=== PATIENT | female | born 1975 | race Caucasian/White ===

== ENCOUNTER 2018-07-11 01:14 | Observation (INO) ==
[2018-07-11] MEDS ORDERED: Isovue-370 500 ML INFUS..BTL IV ONE ×2 (01:20→02:08)
--- NOTE | 2018-07-11 01:24 | Emergency Department Note ---
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 AT 12:30 this morning, patient went to the restroom. While there, she had abrupt onset right sided numbness. She attempted to stand and was unable to due to weakness of her right leg. She fell; no head trauma. No LOC. She arrives by [facility]. 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 No EtOH, smoking, illicit substance use. No history of cardiac problems. No history of hypertension, hyperlipidemia, diabetes. ROS: POS: as above Neg: fever, chills, nausea, vomiting, chest pain, palpitations, dyspnea, headache, visual changes, confusion. - Related Data Home Medications: Home Medications Medication Instructions Recorded Confirmed No Known Home Drugs 07/11/18 07/11/18 Allergies/Adverse Reactions: Allergies Allergy/AdvReac Type Severity Reaction Status Date / Time No Known Allergies Allergy Verified 07/11/18 01:31 All systems ED: reviewed and negative except as stated. Review of Systems: As Per HPI Physical Exam Vital Signs Reviewed General: Patient is alert, oriented, and in no acute distress. Head: atraumatic, normocephalic Eye: normal appearance, PERRL, EOMI, no scleral icterus, no conjunctival injection ENT: mucous membranes moist, normal external ear exam Neck: normal inspection, trachea midline, full ROM Chest: normal inspection, symmetric chest rise Respiratory: Good respiratory effort. Bilateral breath sounds are clear without wheezing, crackles, or rhonchi. Cardiovascular: Regular rate and rhythm. No clicks, rubs, gallops, or murmors. Normal heart sounds. Abdomen: Bowel sounds present normoactive x-4 quadrants. Abdomen is soft, nondistended, and nontender. No guarding or rebound. No organomegaly noted. Musculoskeletal: Spontaneously moving all extremities. Skin: warm, dry, intact. Neuro: Alert and oriented x4. GCS 15. Mild drooping to the right side of her face. Mild Cerner speech. She is answering all questions properly. No visual field deficits. Right lower extremity to be lifted off the bed but slowly drifts back down, not hitting the bed. Similar for right upper extremity. Sensation is not a sharp on the right side. Psych: Patient's affect is appropriate for situation. Course Course Narrative: On intake: NIHSS 4. right upper lower extremity weakness, decreased sensation on the right side. Right fissure. Slurring of speech. Stroke alert called. On return from CT scan, there was improvement in her speech, facial droop, and strength though none were back to baseline. [facility] neurology evaluated the patient. Recommends aspirin, no tPa, and admission for TIA workup. [place] radiology re: CTA head neck. Abnormality in proximal right ICA suspected to be streak artifact on right ICA. Suspicious for hair tie or something on the bed. At worst, small dissection. Recommends follow-up MRI neck which does not need to be done emergently. Rather, this can be done first thing in the morning included with her MRI head as part of the TIA workup. Discussed the above with the admitting hospitalist. He agrees to admission for TIA workup. Patient is asymptomatic in the emergency department prior to transport up to the floor. She is ambulated without difficulty and without assistance. Aspirin given. Vital Signs Temperature 98 F 07/11/18 01:16 Pulse Rate 86 07/11/18 01:16 Respiratory Rate 15 07/11/18 01:16 Blood Pressure 142/89 07/11/18 01:16 O2 Sat by Pulse Oximetry 99 07/11/18 01:16 Temperature 97.9 F 07/11/18 04:35 Pulse Rate 72 07/11/18 04:35 Respiratory Rate 15 07/11/18 04:35 Blood Pressure 129/79 07/11/18 04:35 O2 Sat by Pulse Oximetry 97 07/11/18 04:45 Oxygen Delivery Oxygen Delivery Room Air Neuro Symptoms/Deficit - Lab Data Result diagrams: 07/11/18 01:27 07/11/18 01:27 Lab Results 07/11/18 07/11/18 07/11/18 Range/Units 01:19 01:27 01:27 WBC 7.6 (4.3-11.1) K/mcL RBC 4.58 (3.82-4.97) M/mcL Hgb 13.4 (11.5-15.4) g/dL Hct 41.8 (35.3-44.9) % MCV 91.3 (83.0-100.0) fL MCH 29.3 (28.0-33.3) pg MCHC 32.1 (31.6-35.5) g/dL RDW 13.1 (11.5-14.5) % Plt Count 291 (140-400) K/mcL MPV 9.3 L (9.4-12.4) fL PT 12.2 H (9.4-12.1) Seconds INR 1.1 APTT 27.8 (26.0-36.0) Seconds Sodium (136-145) mEq/L Potassium (3.5-5.1) mEq/L Chloride (98-107) mEq/L Carbon Dioxide (23-29) mEq/L BUN (6-20) mg/dL Creatinine (0.60-1.20) mg/dL Est GFR ( Amer) (> 60) Est GFR (Non-Af Amer) (> 60) BUN/Creatinine Ratio (6-26) Glucose (70-105) mg/dL POC Glucose 110 H (70-99) mg/dL Calculated Osmolality (280-300) Calcium (8.6-10.3) mg/dL Troponin I (< 0.04) ng/mL Urine Test (Negative) 07/11/18 07/11/18 Range/Units 01:27 02:54 WBC (4.3-11.1) K/mcL RBC (3.82-4.97) M/mcL Hgb (11.5-15.4) g/dL Hct (35.3-44.9) % MCV (83.0-100.0) fL MCH (28.0-33.3) pg MCHC (31.6-35.5) g/dL RDW (11.5-14.5) % Plt Count (140-400) K/mcL MPV (9.4-12.4) fL PT (9.4-12.1) Seconds INR APTT (26.0-36.0) Seconds Sodium 138 (136-145) mEq/L Potassium 3.7 (3.5-5.1) mEq/L Chloride 104 (98-107) mEq/L Carbon Dioxide 24 (23-29) mEq/L BUN 19 (6-20) mg/dL Creatinine 0.82 (0.60-1.20) mg/dL Est GFR ( Amer) > 60 (> 60) Est GFR (Non-Af Amer) > 60 (> 60) BUN/Creatinine Ratio 23 (6-26) Glucose 127 H (70-105) mg/dL POC Glucose (70-99) mg/dL Calculated Osmolality 290 (280-300) Calcium 9.5 (8.6-10.3) mg/dL Troponin I < 0.03 (< 0.04) ng/mL Urine Test Negative (Negative) NIH Stroke Scale - Level of Consciousness LOC: Alert - LOC Questions LOC Questions: Answers both correctly - LOC Commands LOC Commands: Performs both correctly - Best Gaze Best Gaze: Normal - Visual Visual: No visual loss - Facial Palsy Facial Palsy: Minor asymmetry on smiling, flattened nasolabial fold - Motor Arms Motor Arm-Left: No drift for 10 seconds Motor Arm-Right: No drift for 10 seconds - Motor Legs Motor Leg-Left: No drift for 5 seconds Motor Leg-Right: Drift, does NOT hit bed - Limb Ataxia Limb Ataxia: Normal, No Ataxia - Sensory Sensory: Mild to moderate loss, "not as sharp" - Best Language Best Language: No aphasia - Dysarthria Dysarthria: Mild, slurs some words - Extinction and Inattention Extinction and Inattention: Normal - NIHSS Total Score NIHSS Total Score: 4 TPA Checklist - LKW: 3-4.5 hrs Add. Warnings/Precautions Patient/family understanding: The patient/family members have been counseled and understood the risk, benefit, and alternatives of treatment.
[2018-07-11 01:33] LABS: Hematocrit 41.8 % (35.3-44.9); Hemoglobin 13.4 g/dL (11.5-15.4); Mean Corpuscular HGB Conc 32.1 g/dL (31.6-35.5); Mean Corpuscular Hemoglobin 29.3 pg (28.0-33.3); Mean Corpuscular Volume 91.3 fL (83.0-100.0); Mean Platelet Volume 9.3 fL (9.4-12.4); Platelet Count 291 K/mcL (140-400); Red Blood Count 4.58 M/mcL (3.82-4.97); Red Cell Distribution Width 13.1 % (11.5-14.5)
[2018-07-11 01:41] LABS: INR 1.1; Prothrombin Time 12.2 Seconds (9.4-12.1)
[2018-07-11 01:43] LABS: Activated Partial Thrombo Time 27.8 Seconds (26.0-36.0)
[2018-07-11 02:00] LABS: BUN/Creatinine Ratio 23 (6-26); Blood Urea Nitrogen 19 mg/dL (6-20); Calcium 9.5 mg/dL (8.6-10.3); Carbon Dioxide 24 mEq/L (23-29); Chloride 104 mEq/L (98-107); Glucose 127 mg/dL (70-105); Osmolality,Calculated 290 (280-300); Potassium 3.7 mEq/L (3.5-5.1); Sodium 138 mEq/L (136-145); eGFR For Non-African Americans > 60 (> 60)
[2018-07-11 02:01] LABS: Troponin I < 0.03 ng/mL (< 0.04)
[2018-07-11] MEDS ORDERED: Aspirin 325 MG TABLET PO ONE (02:02)
--- NOTE | 2018-07-11 03:41 | Emergency Department Note ---
Disposition Clinical Impression: TIA (transient ischemic attack) Disposition: Admitted As Inpatient Condition: Good General Adult HPI - General Chief complaint: ED Neuro Symptoms/Deficit Stated complaint: right side numbness Time Seen by Provider: 07/11/18 01:20 Source: patient, EMS Limitations: no limitations Nursing Notes Reviewed: Yes Vital Signs Reviewed: Yes - History of Present Illness Pain Scale: 0 - Related Data Home Medications Medication Instructions Recorded Confirmed No Known Home Drugs 07/11/18 07/11/18 Allergies Allergy/AdvReac Type Severity Reaction Status Date / Time No Known Allergies Allergy Verified 07/11/18 01:31 Past Medical History - Past Medical History Medical history: Reports: no medical history Psychiatric history: Reports: no psych history - Social History Smoking Status: Never smoker Alcohol use: Reports: none Drug use: Reports: none Physical Exam - General Limitations: no limitations General appearance: alert Course Vital Signs Temperature 98 F 07/11/18 01:16 Pulse Rate 86 07/11/18 01:16 Respiratory Rate 15 07/11/18 01:16 Blood Pressure 142/89 07/11/18 01:16 O2 Sat by Pulse Oximetry 99 07/11/18 01:16 Temperature 97.9 F 07/11/18 04:35 Pulse Rate 72 07/11/18 04:35 Respiratory Rate 15 07/11/18 04:35 Blood Pressure 129/79 07/11/18 04:35 O2 Sat by Pulse Oximetry 97 07/11/18 04:45 Oxygen Delivery Oxygen Delivery Room Air Medical Decision Making - Lab Data Lab results reviewed: Yes I reviewed the patient's lab results. Result diagrams: 07/11/18 01:27 07/11/18 01:27 Lab Results 07/11/18 07/11/18 07/11/18 Range/Units 01:19 01:27 01:27 WBC 7.6 (4.3-11.1) K/mcL RBC 4.58 (3.82-4.97) M/mcL Hgb 13.4 (11.5-15.4) g/dL Hct 41.8 (35.3-44.9) % MCV 91.3 (83.0-100.0) fL MCH 29.3 (28.0-33.3) pg MCHC 32.1 (31.6-35.5) g/dL RDW 13.1 (11.5-14.5) % Plt Count 291 (140-400) K/mcL MPV 9.3 L (9.4-12.4) fL PT 12.2 H (9.4-12.1) Seconds INR 1.1 APTT 27.8 (26.0-36.0) Seconds Sodium (136-145) mEq/L Potassium (3.5-5.1) mEq/L Chloride (98-107) mEq/L Carbon Dioxide (23-29) mEq/L BUN (6-20) mg/dL Creatinine (0.60-1.20) mg/dL Est GFR ( Amer) (> 60) Est GFR (Non-Af Amer) (> 60) BUN/Creatinine Ratio (6-26) Glucose (70-105) mg/dL POC Glucose 110 H (70-99) mg/dL Calculated Osmolality (280-300) Calcium (8.6-10.3) mg/dL Troponin I (< 0.04) ng/mL Urine Test (Negative) 07/11/18 07/11/18 Range/Units 01:27 02:54 WBC (4.3-11.1) K/mcL RBC (3.82-4.97) M/mcL Hgb (11.5-15.4) g/dL Hct (35.3-44.9) % MCV (83.0-100.0) fL MCH (28.0-33.3) pg MCHC (31.6-35.5) g/dL RDW (11.5-14.5) % Plt Count (140-400) K/mcL MPV (9.4-12.4) fL PT (9.4-12.1) Seconds INR APTT (26.0-36.0) Seconds Sodium 138 (136-145) mEq/L Potassium 3.7 (3.5-5.1) mEq/L Chloride 104 (98-107) mEq/L Carbon Dioxide 24 (23-29) mEq/L BUN 19 (6-20) mg/dL Creatinine 0.82 (0.60-1.20) mg/dL Est GFR ( Amer) > 60 (> 60) Est GFR (Non-Af Amer) > 60 (> 60) BUN/Creatinine Ratio 23 (6-26) Glucose 127 H (70-105) mg/dL POC Glucose (70-99) mg/dL Calculated Osmolality 290 (280-300) Calcium 9.5 (8.6-10.3) mg/dL Troponin I < 0.03 (< 0.04) ng/mL Urine Test Negative (Negative) - Radiology Data Radiology results reviewed: Yes I reviewed the patient's radiology results. Head CT 07/11/18 01:20 IMPRESSION: No acute intracranial abnormality. Left frontal prominent extra-axial space possibly prominent sulcus versus 1 cm arachnoid cyst. If further characterization is desired, MRI without IV contrast can be obtained for clarification. Borderline low-lying cerebellar tonsils. Findings were discussed with Dr. Garcia at 1: 40 am on 07/11/2018. D/ / Murali Mejia / Murali Mejia Interpreting Provider: Murali Mejia Head CTA 07/11/18 02:08 IMPRESSION: Right internal carotid artery intimal irregularity suggestive of a tiny dissection flap without occlusion. Please note there is streak artifact in this location due to hyperdensity located along the posterior left margin of the patient raising the possibility of artifactual finding. No acute intracranial arterial abnormality follow-up CT angiogram or MRA neck for confirmation is suggested. Critical results were called by Dr. Murali Mejia to Nikko Marie on 07/11/2018 at 02:59. D/ / Murali Mejia / Murali Mejia Interpreting Provider: Murali Mejia Neck CTA 07/11/18 02:08 IMPRESSION: Right internal carotid artery intimal irregularity suggestive of a tiny dissection flap without occlusion. Please note there is streak artifact in this location due to hyperdensity located along the posterior left margin of the patient raising the possibility of artifactual finding. No acute intracranial arterial abnormality follow-up CT angiogram or MRA neck for confirmation is suggested. Critical results were called by Dr. Murali Mejia to Nikko Marie on 07/11/2018 at 02:59. D/ / Murali Mejia / Murali Mejia Interpreting Provider: Murali Mejia - EKG Data EKG #1 EKG attestation: Yes I reviewed and interpreted this EKG. EKG results narrative: EKG shows a normal sinus rhythm with ventricular rate of 82. No acute ST segment elevation or depression. No arrhythmia or ectopy. Critical Care Time Critical Care Time: Yes Total Critical Care Time: 45 Attestation: Critical care performed: Time is exclusive of separately billable procedures. Time includes: direct patient care, patient reassessment, coordination of patient care, interpretation of data (laboratory data, radiology data, and respiratory data), review of patient's medical records, medical consultation and documentation of patient ca re. Procedures included in critical care time: Procedures excluded from critical care time: Attestation Statement - Attestation Attestation: I, Ashwin Garcia MD, personally evaluated this patient and discussed their management with the resident physician. I reviewed the resident's note and agree with the documented findings, medical decision making, and plan of care. 42-year-old female presents to the emergency department by ambulance with a complaint of acute onset of stroke symptoms. 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 She also was unable to speak. She has no prior medical history. No history of hypertension or diabetes. No headache. No blurred vision or double vision. By the time the patient arrived here in our emergency department her symptoms were improving and she is able to speak but has difficulty with words and her speech is slurred. She is able to move her right side but still has right-sided weakness and a mild right facial droop. A stroke alert was called. Patient had an emergent head CT which was negative per radiologist. Her symptoms continued to rapidly improve and by the time the stroke neurologist from [facility] examine the patient via the stroke robot her sympto ms had essentially totally resolved and her stroke scale was 0. Neurology recommended aspirin and admission for TIA workup. On examination patient is a well-developed well-nourished well-appearing female in no acute distress. She is alert and oriented 3. There is no cyanosis or diaphoresis. Sounds are clear and equal bilaterally. Heart regular rate and rhythm. Abdomen soft and nontender with normal bowel sounds. Patient does have mild right facial droop and some slurred speech. Some difficulty getting her words out but is able to talk and answer questions appropriately. She has weak ness of the right upper and lower extremity but is able to hold them off the stretcher with some drift. Labs reviewed. Head CT negative. The hospitalist, Dr. Auguste, was consulted and accepted admission of the patient.
[2018-07-11] MEDS ORDERED: Naloxone 0.4 MG/ML INJ IVP PRN (04:55)
[2018-07-11] MEDS ORDERED: Acetaminophen 325 MG TABLET PO PRN (04:55)
--- NOTE | 2018-07-11 05:36 | Internal Med History&Physical ---
Date of Encounter: 07/11/18 Time of Encounter: 05:27 Internal Medicine - H&P: HPI Chief complaint: Right sided numbness/weakness History of present illness: Ms. Sabillon is a 42 year old female with no significant past medical history who presents to the ED due to right sided numbness and weakness. Patient was in her usual state of health today. 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 She states that around 12:30 while at work she was using the bathroom when she noted tingling sensation in her right hand. She states that when she went to reach the toilet paper she was unable to move her right arm. Symptoms rapidly progressed to involve the right side of her face and leg and to include numbness as well. She noted she was unable to speak clearly and was mumbling. Patient started to droop over to her side and decided to slowly ease herself on to the floor. She was then able to text one of her colleagues to come and help her. Stroke alert was called and patient was subsequently transferred to [place]. Emergency CT was negative. Per ED reports, patient's symptoms rapidly improved by the time the stroke neurologist from [facility] examined the patient remotely. Her NIH stroke scale was 0 at the time. Patient reports that she does not smoke or drink. She does state that she has a family history of multiple sclerosis in her mother. Review of systems otherwise negative. Laboratory workup was otherwise unremarkable. Past Med Surg Social Fam HX - Past Medical History Medical history: no medical history Psychiatric history: no psych history - Past Surgical History Surgical History: Additional surgical history: Korey Bermudez 05/03. Lipoma removal 2012 - Social History Smoking Status: Never smoker Alcohol use: none Drug use: none Internal Medicine - H&P: Meds No Known Home Drugs 07/11/18 [History] Allergy/AdvReac Type Severity Reaction Status Date / Time No Known Allergies Allergy Verified 07/11/18 01:31 All Systems PM: A 10-system review of systems was performed and is negative for pertinent findings except as documented above in the HPI. - Constitutional Constitutional: no chills, no fever(s), no night sweats - EENT Eyes: no change in vision, no discharge, no pain, no photophobia Ears: no ear discharge, no ear pain, no tinnitus Nose, mouth and throat: no dysphagia, no nasal discharge, no neck pain, no sore throat - Cardiovascular Cardiovascular ROS IM: no chest pain, no diaphoresis, no dyspnea, no lighthe adedness, no palpitations, no syncope - Respiratory Respiratory: no cough, no dyspnea, no wheezing, no excessive phlegm production - Gastrointestinal Gastrointestinal: no abdominal pain, no diarrhea, no hematemesis, no hem atochezia, no melena, no nausea, no vomiting - Genitourinary Genitourinary: no change in urinary stream, no dysuria, no flank pain, no hematuria - Musculoskeletal Musculoskeletal ROS IM: no numbness, no tingling - Integumentary Integumentary IM: no rash, no unusual bruising - Neurological Neurological ROS: no confusion, no convulsions, no focal weakness, no numbness, no tingling, no tremor(s) - Hematologic/Lymphatic Hematologic/Lymphatic: no easy bruising - Constitutional Vitals: Temp Pulse Resp BP Pulse Ox 98.0 F 90 17 134/88 97 07/11/18 01:16 07/11/18 02:58 07/11/18 02:58 07/11/18 02:58 07/11/18 04:45 Exam: General: Alert and oriented 3; lying in bed pleasant, in no acute distress Skin:Normal color, no rash, no lesions. HEENT:EOM, pupils equal, round and reactive. Cardiovascular:Normal S1 & S2, no rubs, murmurs or gallops. No JVD. Pulse regular. Lungs:Normal breath sounds, no wheezes or crackles. Abdomen:Soft, non-tender, no rigidity. Extremities:No deformity, no edema or tenderness, no joint swelling or clubbing. Neurological:Normal cognition, cranial nerves II through XII intact; sensation intact; muscle strength 5 out of 5 in the upper and lower extremities; no dysmetria appreciated; negative Babinski. Pulses:Carotid and radial pulses normal +2. Rest of the physical exam is non contributory Internal Med - H&P Results - Labs CBC & Chem 7: 07/11/18 01:27 07/11/18 09:42 Labs: Short CBC 07/11/18 Range/Units 01:27 WBC 7.6 (4.3-11.1) K/mcL Hgb 13.4 (11.5-15.4) g/dL Hct 41.8 (35.3-44.9) % Plt Count 291 (140-400) K/mcL BMP 07/11/18 01:27 Sodium 138 Potassium 3.7 Chloride 104 Carbon Dioxide 24 BUN 19 Creatinine 0.82 Glucose 127 H Calcium 9.5 Cardiac Enzymes 07/11/18 Range/Units 01:27 Troponin I < 0.03 (< 0.04) ng/mL - Impressions ITS Impressions Head CT 07/11/18 01:20 IMPRESSION: No acute intracranial abnormality. Left frontal prominent extra-axial space possibly prominent sulcus versus 1 cm arachnoid cyst. If further characterization is desired, MRI without IV contrast can be obtained for clarification. Borderline low-lying cerebellar tonsils. Findings were discussed with Dr. Garcia at 1: 40 am on 07/11/2018. D/ / Murali Mejia / Murali Mejia Interpreting Provider: Murali Mejia Head CTA 07/11/18 02:08 IMPRESSION: Right internal carotid artery intimal irregularity suggestive of a tiny dissection flap without occlusion. Please note there is streak artifact in this location due to hyperdensity located along the posterior left margin of the patient raising the possibility of artifactual finding. No acute intracranial arterial abnormality follow-up CT angiogram or MRA neck for confirmation is suggested. Critical results were called by Dr. Murali Mejia to Nikko Marie on 07/11/2018 at 02:59. D/ / Murali Mejia / Murali Mejia Interpreting Provider: Murali Mejia Neck CTA 07/11/18 02:08 IMPRESSION: Right internal carotid artery intimal irregularity suggestive of a tiny dissection flap without occlusion. Please note there is streak artifact in this location due to hyperdensity located along the posterior left margin of the patient raising the possibility of artifactual finding. No acute intracranial arterial abnormality follow-up CT angiogram or MRA neck for confirmation is suggested. Critical results were called by Dr. Murali Mejia to Nikko Marie on 07/11/2018 at 02:59. D/ / Murali Mejia / Murali Mejia Interpreting Provider: Murali Mejia - Assessment and plan (1) TIA (transient ischemic attack) Current Visit: Yes Status: Suspected Assessment and plan: Patient's clinical presentation with right-sided numbness and weakness which now appears to have resolved concerning for TIA. Patient does not seem to have any risk factors. Given patient's family history of multiple sclerosis cannot discount that is a possibility though her one-sided presentation would make it less likely. Radiology report of the CTA of the neck describes findings of a right internal carotid artery intimal irregularity suggestive of a tiny dissection flap without occlusion. I called the radiologist to discuss the findings who, as stated in his report, felt this to be an artifact likely from an object on the table or on the patient herself which is further supported by the fact that symptoms seem to be suggestive of a left sided supratentorial lesion. MRA and MRI was recommended to further clarify this artifactual suspicion; patient currently appears to be back to baseline neurologically. EKG was normal. Patient received loading dose of aspirin in the ED. Neuro checks every hour Telemetry We will obtain MRA and MRI of the head and neck Echocardiogram and bilateral carotid duplex Neurology consult (2) DVT prophylaxis Current Visit: Yes Status: Acute Assessment and plan: Subcutaneous heparin - Time Spent With Patient Total time spent is greater than 50% in coordination of care (as documented) at patient's floor/unit and/or counseling patient:
[2018-07-11] MEDS: *HR* Heparin 5,000 UNIT/ML VIAL SQ SCH ×3 (06:21→20:02)
--- NOTE | 2018-07-11 08:22 | Event Note ---
Date of Encounter: 07/11/18 Time of Encounter: 08:05 Seen and assessed. Agree with plan per night team Plan TIA with dysarthria nd right sided weakness r/o Acute CVA vs Multiple sclerosis. CTA head showed right internal carotid artery intimal irregularity suggestive of a tiny dissection flap without occlusion. Obtain MRI head and neck. Neurology consulted and recs appreciated
[2018-07-11] MEDS: Aspirin Enteric Coated 81 MG Tablet PO SCH (08:43)
--- NOTE | 2018-07-11 09:54 | Neurology - Consult Note ---
<Onesimo Cline - Last Filed: 07/11/18 10:03> Date of Encounter: 07/11/18 Time of Encounter: 09:49 Assessment and Plan (1) TIA (transient ischemic attack) Current Visit: Yes Status: Suspected Neurological exam nonfocal and nonlateralizing except for dysarthria Patient history of complete right-sided paralysis and paresis is quite co ncerning. CT head is negative. Had CTA is negative. Neck CTA shows possible right internal carotid artery dissection flap without occlusion unclear if this is artifact. Head and neck MRA pending. Patient also has a family history of MS. May also need a thoracic spine MRI. Patient does not have any risk factors for stroke: She is a nonsmoker, no history of hypertension. He will on A1c, lipid panel pending. Continue aspirin, statin. History of Present Illness Chief complaint: Right-sided weakness, numbness HPI: Ms. Sabillon is a 42 year old female presented from the [place] with chief complaint of right-sided paralysis, numbness. Patient was in the bathroom and was reaching out with her right hand to get toilet paper when she noticed that her right hand was not moving and she relies that she had complete loss of control of her right side and numbness and weakness of her right face as well. Patient helped herself to the ground and used her [employer] paging system to call for help. She found herself to be mumbling and not speaking clearly. Patient was transferred to [place] and had emergent CT which was negative. In the emergency department her NIH stroke scale was 0 and her symptoms had improved rapidly by the time of his neurologist examine the patient. She reports that her mother has multiple sclerosis. She denied any double vision, headache, blurry vision, difficulty swallowing. Patient reports her speech is not back to normal however her strength and her numbness has resolved. Past Med Surg Social Fam HX - Past Medical History Medical history: no medical history Psychiatric history: no psych history - Past Surgical History Surgical History: Additional surgical history: Korey Bermudez 05/03. Lipoma removal 2012 - Social History Smoking Status: Never smoker Alcohol use: none Drug use: none Medications and Allergies No Known Home Drugs 07/11/18 [History] Allergy/AdvReac Type Severity Reaction Status Date / Time No Known Allergies Allergy Verified 07/11/18 01:31 All Systems: The remainder of the systems were reviewed and are negative Review of Systems: Constitutional: Denies fever, chills HEENT: Denies headache, trauma, blurry vision, eye discharge, ear pain, ear discharge neck pain, sore throat, rhinorrhea Heart: Denies chest pain palpitations, LE edema Lungs: Denies shortness of breath cough Abdomen: Denies abdominal pain nausea vomiting diarrhea MSK: Denies back pain, falls, joint pain Kidney: Denies dysuria, hematuria Skin: Denies rash, ulcers Neuro: As per history of present illness Psych: denies axniety, depression Physical Examination - Vital Signs Vital Signs: Initial Vital Signs Temp Pulse Resp BP Pulse Ox 98 F 86 15 142/89 99 07/11/18 01:16 07/11/18 01:16 07/11/18 01:16 07/11/18 01:16 07/11/18 01:16 - Exam Exam: General: pleasant, without distress HEENT: Head atraumatic, normocephalic, EOMI, PERRL, absent ear discharge or trauma, Moist Mucous Membranes, uvula midline Neck: nontender to palpation, absent lymphadenopathy, Cardiovascualr: Regular rate and rhythm with no murmur, absent gallops or rubs, absent pedal edema, radial pulses 2 out of 4 Lungs: Clear to auscultation bilaterally, not in respiratory distress Abdomen: Soft nontender, nondistended positive bowel sounds, absent hepatomegaly Skin: warm and dry, absent rash, absent open wounds and nodules MSK: absent clubbing, cyanosis, joints without swelling Psych: good insight and judgment, - Constitutional General appearance: comfortable - Neurologic Sensorimotor examination: intact Detailed motor examination: grossly full strength in all extremities, full strength in all major muscle groups Motor examination - right side: 5/5: deltoids, biceps, triceps, wrist flexion, wrist extension, remarketing manager, hip flexors, tibialis Anterior, quadriceps, toe extension (EHL), plantarflexion Motor examination - left side: 5/5: deltoids, biceps, triceps, wrist flexion, wrist extension, hip flexors, remarketing manager, quadriceps, tibialis Anterior, toe extension (EHL), plantarflexion Detailed sensory examination: intact, light touch, two-point discrimination, pain, temperature Reflexes: Biceps: 2+, Triceps: 2+, Brachioradialis: 2+, Patella: 2+, Achilles: 2+ Mental Status Examination: awake, alert, oriented to person, oriented to place, oriented to time, follows commands appropriately, answers questions appropriately, no agnosia, no aphasia, no aproxia Cranial nerve examination: PERRL, EOMI, visual lobo intact, sensory to face intact, mastication intact, no facial asymmetry is present, hearing is intact symmetrically, soft palate elevates bilaterally upon phonation, flexes SCM and trapezius muscles symmetrically with full power, tongue protrudes midline, no atrophy or facial fasiculations present Cerebellar examination: no dysmetria, performs finger to nose and heel to casper symmetrically without ataxia, no gait ataxia, no truncal ataxia, no difficulty with rapid alternating movements Results - Laboratory Findings CBC and BMP: 07/11/18:07/11/18: Abnormal lab findings: Abnormal lab results MPV 9.3 fL (9.4-12.4) L 07/11/18: PT 12.2 Seconds (9.4-12.1) H 07/11/18: Glucose 127 mg/dL (70-105) H 07/11/18: POC Glucose 110 mg/dL (70-99) H 07/11/18 01:19 Consult Discharge Plan - Plan Referrals: Andres Gabriel MD [Primary Care Provider] - <Eber Thurston - Last Filed: 07/11/18 16:33> Time of Encounter: 16:16 Assessment and Plan (1) Left sided lacunar infarction Current Visit: Yes Status: Acute Patient has intact suffered a lacunar infarct involving the left basal ganglia as evidenced on the diffusion images of MRI. There is no associated hemorrhage present. This case is atypical on based on the patient's age, and the fact that she does not have the traditional risk factors. She denies any history of recreational drugs. Therefore we must consider other possibilities that occur more frequently in the younger population. A CTA scan of the neck did reveal abnormalities in the right internal carotid artery. I recommend vascular consultation for further assessment of this normality. MRA scan of the brain has been completed and interpretation is pending. The patient may need speech therapy as she does have some residual difficulty with speech however her strength in the right side is fairly good. Further recommendations will be done upon completion of the transthoracic echocardiogram and carotid Doppler study. We may also need a transesophageal echocardiogram in this instance. Recommend aspirin 81 mg for now. I will also recommend a urine tox screen. She denies oral contraceptives or any hormonal replacement, denies cigarette smoking. I will reevaluate her tomorrow. History of Present Illness HPI: The chart was reviewed, patient was seen and examined independently. Case was discussed with Dr. Cline. I agree with his assessment as stated above. However in the interim since she was seen by Dr. Cline she has recovered substantially bit of strength of the right upper and right lower extremities. She continues to have some difficulty with verbal expression. She denies any previous episodes of this nature. There is a family history of MS. The MRI scan of the brain does reveal any acute infarct in the left basal ganglia. There is no hemo rrhage present. Echocardiogram and carotid Doppler studies are yet pending. CTA of the brain does reveal an abnormality involving the right internal carotid is difficult to identify whether not this is artifactual or previous dissection. She was concerned about a history of MS in the family however there is no evidence of demyelinating disease on the MRI scan of the brain. Vital signs upon admission were normal. She denies recreational drugs however urine tox screen was not obtained. She is very in tune with-fitness matters. She does drink a pretty workout preparation however she stated that this was about 6 hours prior to the above event. She denied headache or visual changes denied confusion. She denies oral contraception no hormonal replacement. Denies cigarette smoking. All Systems: The remainder of the systems were reviewed and are negative Review of Systems: The balance of the systems review is negative. Physical Examination - Vital Signs Vital Signs: Initial Vital Signs Temp Pulse Resp BP Pulse Ox 98 F 86 15 142/89 99 07/11/18 01:16 07/11/18 01:16 07/11/18 01:16 07/11/18 01:16 07/11/18 01:16 - Neurologic Motor examination - right side: 4/5: deltoids, biceps, triceps, hip flexors, tibialis Anterior, toe extension (EHL), plantarflexion, 5/5: remarketing manager, quadriceps Motor examination - left side: 5/5: deltoids, biceps, triceps, wrist flexion, wrist extension, hip flexors, remarketing manager, quadriceps, tibialis Anterior, toe extension (EHL), plantarflexion Results - Laboratory Findings CBC and BMP: 07/11/18 01:27 07/11/18 09:42 Abnormal lab findings: Abnormal lab results MPV 9.3 fL (9.4-12.4) L 07/11/18 01:27 PT 13.0 Seconds (9.4-12.1) H 07/11/18 09:42 POC Glucose 110 mg/dL (70-99) H 07/11/18 01:19 LDL Cholesterol, Calc 107 mg/dL (0-99) H 07/11/18 09:42
[2018-07-11 10:32] LABS: INR 1.2
[2018-07-11 10:45] LABS: BUN/Creatinine Ratio 21 (6-26); Blood Urea Nitrogen 16 mg/dL (6-20); Calcium 9.5 mg/dL (8.6-10.3); Carbon Dioxide 25 mEq/L (23-29); Chloride 106 mEq/L (98-107); Chol/HDL Ratio 3.1 (0-4.9); Cholesterol 179 mg/dL (< 200); Glucose 104 mg/dL (70-105); HDL Cholesterol 58 mg/dL (40-59); LDL Cholesterol,Calculated 107 mg/dL (0-99); Osmolality,Calculated 289 (280-300); Sodium 139 mEq/L (136-145); Triglycerides 71 mg/dL (< 150); eGFR For Non-African Americans > 60 (> 60)
[2018-07-11 11:10] LABS: Estimated Average Glucose 97 mg/dl
[2018-07-11 19:44] LABS: Amphetamine Screen,Urine Negative ng/mL (Cutoff=1000); Barbiturate Screen,Urine Negative ng/mL (Cutoff=200); Benzodiazepines Screen,Urine Negative ng/mL (Cutoff=200); Cannabinoid Screen,Urine Negative ng/mL (Cutoff = 50); Cocaine Screen,Urine Negative ng/mL (Cutoff= 300); Opiate Screen,Urine Negative ng/mL (Cutoff=300); Phencyclidine Screen,Urine Negative ng/mL (Cutoff=25)
[2018-07-12] MEDS: *HR* Heparin 5,000 UNIT/ML VIAL SQ SCH (06:29)
--- NOTE | 2018-07-12 07:46 | Internal Med Progress Note ---
Hospitalist Progress Note - Encounter Date of Encounter: 07/12/18 Time of Encounter: 07:45 - Exam Vitals: Temp Pulse Resp BP Pulse Ox 98.4 F 64 20 121/78 90 07/12/18 07:20 07/12/18 07:20 07/12/18 07:20 07/12/18 07:20 07/12/18 04:00 Exam: General: Alert and oriented 3; lying in bed pleasant, in no acute distress Skin:Normal color, no rash, no lesions. HEENT:EOM, pupils equal, round and reactive. Cardiovascular:Normal S1 & S2, no rubs, murmurs or gallops. No JVD. Pulse regular. Lungs:Normal breath sounds, no wheezes or crackles. Abdomen:Soft, non-tender, no rigidity. Extremities:No deformity, no edema or tenderness, no joint swelling or clubbing. Neurological:Normal cognition, cranial nerves II through XII intact; sensation intact; muscle strength 5 out of 5 in the upper and lower extremities; no dy smetria appreciated; negative Babinski. Pulses:Carotid and radial pulses normal +2. Rest of the physical exam is non contributory - Assessment and Plan (1) Left sided lacunar infarction Current Visit: Yes Status: Acute Assessment and Plan: Pt presented with right sided weakness and dysarthria MRI head showed left basal ganglia infarct. On aspirin and statin. 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 Start on xarelto per vascular surgery recs. Follow up 2D echo (3) Injury of right internal carotid artery Current Visit: Yes Status: Acute Assessment and Plan: CTA neck showed possible internal carotid artery dissection. Not present on MRA neck Will discuss with vascular surgery for further recommendations (4) DVT prophylaxis Current Visit: Yes Status: Acute Assessment and Plan: Subcutaneous heparin - Time Spent with Patient Total time spent is greater than 50% in coordination of care (as documented) at patient's floor/unit and/or counseling patient: Internal Medicine: Result - Labs CBC & Chem 7: 07/11/18 01:27 07/11/18 09:42 Labs: BMP 07/11/18 09:42 Sodium 139 Potassium 4.0 Chloride 106 Carbon Dioxide 25 BUN 16 Creatinine 0.78 Glucose 104 Calcium 9.5 Cardiac Enzymes 07/11/18 Range/Units 09:42 Troponin I < 0.03 (< 0.04) ng/mL - ABG Interpretation ABG results: PT/INR, D-dimer PT 13.0 Seconds (9.4-12.1) H 07/11/18 09:42 - Impressions Impressions Head MRA 07/11/18 00:00 IMPRESSION: There is mild, less than 50%, stenosis of the internal carotid arteries by NASCET criteria. No intracranial flow-limiting stenosis. D/ : / 07/11/2018 17:13:36 Kaushal Abraham MD / [facility] Interpreting Provider: Kaushal Abraham MD Brain MRI 07/11/18 04:55 IMPRESSION: Small, acute left basal ganglia infarct. The findings were sent to the Radiology Results Communication [facility] at 5:05 pm on 07/11/2018to be communicated to a licensed caregiver. D/ / 07/11/2018 17:06:58 Kaushal Abraham MD / [facility] Interpreting Provider: Kaushal Abraham MD Neck MRA 07/11/18 04:55 IMPRESSION: There is mild, less than 50%, stenosis of the internal carotid arteries by NASCET criteria. No intracranial flow-limiting stenosis. D/ : / 07/11/2018 17:13:36 Kaushal Abraham MD / [facility] Interpreting Provider: Kaushal Abraham MD Consult Discharge Plan - Plan Referrals: Andres Gabriel MD [Primary Care Provider] -
[2018-07-12] MEDS: Aspirin Enteric Coated 81 MG Tablet PO SCH (07:47)
--- NOTE | 2018-07-12 12:40 | Vascular/Endovasc Consult Note ---
Date of Encounter: 07/12/18 Time of Encounter: 11:00 Assessment and Plan (1) Carotid artery dissection Current Visit: Yes Status: Acute The pathophysiology and natural history of carotid dissection was discussed with the patient and all questions were answered. The patient is a carotid artery dissection at the distal bifurcation extending into the proximal internal and external carotid arteries. The etiology of her dissection is unclear. The patient has a concurrent left hemispheric cerebrovascular accident. His recommended the patient began anticoagulation with at the Xarelto or Eliquis. She will require a repeat CT angiogram of the neck in approximately 3 months. She may follow-up with vascular surgery after discharge. The patient was discussed with the hospitalist service. (2) Left sided lacunar infarction Current Visit: Yes Status: Acute The etiology of her left hemispheric cerebrovascular accident is unclear. The patient is no residual motor or sensory deficits in the right upper and lower extremity. She does report some speech deficits to persist. Her CT angiogram of the neck and head and neck reveal a likely embolic source. An echocardiogram is recommended to evaluate for a possible cardiac source of emboli. - History of Present Illness Consult date: 07/12/18 Requesting physician: Di Reed Consult reason: Cerebrovascular accident Chief complaint: Right-sided weakness History of present illness: Ms. Sabillon is a 42 year old female who presented to [facility] with complaints of right-sided paralysis and a speech deficit. Her motor and sensory exam on the right side resolved while in the emergency room. Her speech deficit improved. She does report some residual speech deficit. She underwent an MRI which revealed a small acute left basal ganglia infarct. She also underwent a head and neck CT angiogram she is found have a right internal carotid artery dissection. Vascular surgery was counseled for further evaluation. The patient denies any prior symptoms or recurrent symptoms. She is resting comfortably and denies chest pain or shortness of breath. Past Med Surg Social Fam HX - Past Medical History Medical history: no medical history Psychiatric history: no psych history - Past Surgical History Surgical History: Additional surgical history: Korey Bermudez 05/03. Lipoma removal 2012 - Social History Smoking Status: Never smoker Alcohol use: none Drug use: none - Family History Father Living Status: Still Living Mother Living Status: Still Living Medications and Allergies Atorvastatin [Lipitor] 80 mg PO HS #30 tablet 07/12/18 [Rx] Rivaroxaban [Xarelto] 20 mg PO 1700 #30 tablet 07/12/18 [Rx] Allergy/AdvReac Type Severity Reaction Status Date / Time No Known Allergies Allergy Verified 07/11/18 01:31 All Systems Review: The remainder of the systems were reviewed and are negative - Constitutional Constitutional: no chills, no fever(s) - Cardiovascular Cardiovascular: no chest pain at rest, no dyspnea at rest Exam Vital Signs, Last 4 Hours Temp Pulse Resp BP Pulse Ox 07/12/18 11:15 98.3 F 92 19 116/62 98 General: Present: Conversant, No Apparent Distress HEENT: Present: Atraumatic, Trachea midline, Pupils equal Neck: Absent: JVD, Lymphadenopathy, Left Carotid bruit, Right Carotid bruit Cardiac: Present: Reg Rate and Rhythm, Normal S1 and S2 Lungs: Present: Normal Breath Sounds Neuro: Present: Alert and responsive, No focal deficits noted, Cranial nerves grossly intact, Motor nerves grossly intact, Sensory nerves grossly intact Abdomen: Present: Soft, Non-tender Vascular: Present: Normal capillary refill, Pulse, normal. Absent: Cyanosis, Edema Skin: Present: No rashes noted on visualized skin Consult Discharge Plan - Plan Instructions: Rivaroxaban (By mouth), Carotid Artery Disease (DC), Left Hemispheric Stroke (DC) Referrals: Andres Gabriel MD [Primary Care Provider] - Prescriptions: Atorvastatin [Lipitor] 80 mg PO HS #30 tablet Rivaroxaban [Xarelto] 20 mg PO 1700 #30 tablet
[2018-07-12 14:39] VITALS: BP 126/75
--- NOTE | 2018-07-12 16:22 | Neurology Progress Note ---
Date of Encounter: 07/12/18 Time of Encounter: 16:20 Assessment and Plan (1) Left sided lacunar infarction Current Visit: Yes Status: Acute Left lacunar infarct etiology unknown. Hypercoagulable workup is yet pending. A transthoracic echocardiogram results are pending. She also had a right carotid artery dissection. Vascular has recommended and a coagulation. On the MRI scan of the brain reveals nothing to suggest a diagnosis of multiple scleros is. She is okay to discharge from my perspective. I would like to follow up with her my office and another week or so. Subjective Interval history: Chart was reviewed, patient was seen and examined. Multiple family members at the bedside. Patient has had no acute changes or complaints overnight. Has no complaints today. She is alert and oriented and anxious to go home. She was seen and evaluated by vascular who feels that the abnormality in the right carotid is indeed a dissection. Anticoagulation was recommended. Echocardiogram is pending as are the tests included in the hypercoagulable workup. Urine tox screen was negative. Objective - Constitutional Vitals: Temp Pulse Resp BP Pulse Ox 98.2 F 71 21 126/75 98 07/12/18 14:37 07/12/18 14:37 07/12/18 14:37 07/12/18 14:37 07/12/18 14:37 - Neurological Exam Sensorimotor examination: Present: intact Motor Examination: Present: grossly full strength in all extremities, full strength in all major muscle groups Motor examination - right side: 5/5: deltoids, biceps, triceps, wrist flexion, wrist extension, advertising dispatch clerk, hip flexors, tibialis Anterior, quadriceps, toe extension (EHL), plantarflexion Motor examination - left side: 5/5: deltoids, biceps, triceps, wrist flexion, wrist extension, hip flexors, advertising dispatch clerk, quadriceps, tibialis Anterior, toe extension (EHL), plantarflexion Sensation intact: Present: intact, light touch, two-point discrimination, pain, temperature Mental Status Examination: Present: awake, alert, oriented to person, oriented to place, oriented to time, follows commands appropriately, answers questions appropriately, no agnosia, no aphasia, no aproxia Cranial nerve examination: Present: PERRL, EOMI, visual lobo intact, sensory to face intact, mastication intact, no facial asymmetry is present, hearing is intact symmetrically, soft palate elevates bilaterally upon phonation, flexes SCM and trapezius muscles symmetrically with full power, tongue protrudes midline, no atrophy or facial fasiculations present Cerebellar examination: Present: no dysmetria, performs finger to nose and heel to casper symmetrically without ataxia, no gait ataxia, no truncal ataxia, no difficulty with rapid alternating movements Results - Laboratory Findings CBC and BMP: 07/11/18 01:27 07/11/18 09:42 Abnormal lab findings: Abnormal lab results MPV 9.3 fL (9.4-12.4) L 07/11/18 01:27 ESR 20 mm/hr (0-15) H 07/11/18 16:54 PT 13.0 Seconds (9.4-12.1) H 07/11/18 09:42 POC Glucose 110 mg/dL (70-99) H 07/11/18 01:19 LDL Cholesterol, Calc 107 mg/dL (0-99) H 07/11/18 09:42 Consult Discharge Plan - Plan Referrals: Andres Gabriel MD [Primary Care Provider] -
--- NOTE | 2018-07-12 16:28 | Discharge Summary ---
Orders not resulted at time of discharge: Pending orders 07/11/18 16:54 Antiphospholipid Ab High Spec Routine Antithrombin III, Activity Routine Homocysteine Routine Lupus Anticoagulant Panel Routine Protein C, Functional Routine Protein S, Functional Routine Date of Encounter: 07/12/18 Time of Encounter: 16:00 - Discharge Diagnosis (1) Left sided lacunar infarction Priority: Primary Status: Acute Assessment and Plan: 2 year old female with no significant past medical history who presents to the ED due to right sided numbness and weakness. Patient was in her usual state of health today. 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 She states that around 12:30 while at work she was using the bathroom when she noted tingling sensation in her right hand. She states that when she went to reach the toilet paper she was unable to move her right arm. Symptoms rapidly progressed to involve the right side of her face and leg and to include numbness as well. She noted she was unable to speak clearly and was mumbling. Patient started to droop over to her side and decided to slowly ease herself on to the floor. She was then able to text one of her colleagues to come and help her. Stroke alert was called and patient was subsequently transferred to [place] She was assessed with acute CVA and right internal carotid artery dissection. She presented with right sided weakness and dysarthria. MRI head showed left basal ganglia infarct and CTA neck showed evidence of right ICA dissection. She was started on aspirin and statin and was seen by neurology and vascular surgery. By the next day she had regained her speech, and strength almost entirely with some mild residual right sided weakness. She was discharged on xaarelto for ICA dissection and statin per vascular and neurology recs respectively (2) Carotid artery dissection Priority: Primary Status: Acute (3) Injury of right internal carotid artery Priority: Primary Status: Acute Qualifiers: Encounter type: initial encounter Qualified Code(s): S15.001A - Unspecified injury of right carotid artery, initial encounter (4) DVT prophylaxis Priority: Primary Status: Acute Hospital course: Ms. Sabillon is a 42 year old female - Time Spent with Patient Total time spent providing and/or coordinating discharge services: - Discharge Medications Prescriptions: Atorvastatin [Lipitor] 80 mg PO HS #30 tablet Rivaroxaban [Xarelto] 20 mg PO 1700 #30 tablet Home Medications: Atorvastatin [Lipitor] 80 mg PO HS #30 tablet 07/12/18 [Rx] Rivaroxaban [Xarelto] 20 mg PO 1700 #30 tablet 07/12/18 [Rx] Allergies/Adverse Reactions: Allergy/AdvReac Type Severity Reaction Status Date / Time No Known Allergies Allergy Verified 07/11/18 01:31 Date of admission: 07/11/18 03:11 Primary care physician: Andres Gabriel MD Consults: 07/11/18 02:15 Consult to Neurology [CONS] Stat Consulting Provider: Neurology [facility] Reason for Consult: TIA. NIHSS 4 on intake w/right parasthesia, rt weakness, rt facial droop, slurr speech, resolved to 0 while in ED.[facility] tele neuro recommends no tPa, admit for workup. Time Notified: 02:16 Call Completed: No 07/11/18 04:55 Consult to Physical Therapy [CONS] Routine Comment: Evaluate, develop and implement POC Reason for Consult: TIA Does patient have active BEDREST order?: Yes Is patient medically & hemodynamically stable?: Yes Consult to Emergency Dept Tech [CONS] Routine Reason for SW Consult: TIA 07/12/18 07:44 Consult to Vascular Surgery [CONS] Routine Consulting Provider: V[facility] Surgery [place] Reason for Consult: right internal carotid artery dissection on CTA Call Completed: Yes - Constitutional Vitals: Temp Pulse Resp BP Pulse Ox 98.2 F 71 21 126/75 98 07/12/18 14:37 07/12/18 14:37 07/12/18 14:37 07/12/18 14:37 07/12/18 14:37 Exam: General: Alert and oriented 3; lying in bed pleasant, in no acute distress Skin:Normal color, no rash, no lesions. HEENT:EOM, pupils equal, round and reactive. Cardiovascular:Normal S1 & S2, no rubs, murmurs or gallops. No JVD. Pulse regular. Lungs:Normal breath sounds, no wheezes or crackles. Abdomen:Soft, non-tender, no rigidity. Extremities:No deformity, no edema or tenderness, no joint swelling or clubbing. Neurological:Normal cognition, cranial nerves II through XII intact; sensation intact; muscle strength 4+/5 on right side, normal on left side. Pulses:Carotid and radial pulses normal +2. Rest of the physical exam is non contributory - Patient Status Disposition: Home, Self-Care Condition: Good - Discharge Instructions Instructions: Rivaroxaban (By mouth), Carotid Artery Disease (DC), Left Hemispheric Stroke (DC) Follow Up With: Andres Gabriel MD [Primary Care Provider] - Forms: ED Satisfaction Letter
[2018-07-12] MEDS ORDERED: *HR* Rivaroxaban 10 MG TABLET PO SCH (17:00)
[2018-07-13 22:40] LABS: APTT (LE Anticoag) 42 sec (32-48); Diluted Russell Viper Venom 36 sec (33-44); PT (LE-Anticoag) 13.5 sec (12.0-15.5)
[2018-07-15 08:22] LABS: Antiphospholipid IgG High Spec 2 GPL (0-14); Antiphospholipid IgM High Spec 15 MPL (0-14)
--- NOTE | 2018-07-15 13:52 | Electrocardiograph Report ---
[address] [place], [place] [address] Test Date: 2018-07-11 Pat Name: Noemy Sabillon Department: [id number] Room: 2NE18 Gender: F Pipe Installer: : [id number] Requested By: Di Reed Order Number: [id number] Reading MD: Kaleb Adams Measurements Intervals [place] Rate: 82 P: 59 LA: 117 QRS: 70 QRSD: 94 T: 24 QT: 363 QTc: 424 Interpretive Statements Sinus rhythm Electronically Signed On 07-15-2018 13:50:37 EDT by Kaleb Adams
== END 2018-07-12 17:29 | disposition home or self-care (01) ==
LOC: 2NENU 01:14 → EMEROOARM 01:14 → SUATTDRO 03:11 → 2NENU 03:52
PROVIDERS: ADMIT Internal Medicine; ATTEND Student in an Organized Health Care Education/Training Program